=== PATIENT | female | born 1970 | race Caucasian/White ===

== ENCOUNTER 2024-02-03 18:32 | Emergency (ER) | payer OTHER, SELFPAY ==
[2024-02-03 18:48] VITALS: BP 154/91
[2024-02-03 19:05] LABS: % Basophils 0.7 % (0-2); % Eosinophils 2.4 % (0-6); % Immature Granulocytes 0.2 % (0-0.5); % Lymphocytes 41.7 % (20.5-51.1); % Monocytes 5.7 % (1.7-9.3); % Neutrophils 49.3 % (42.2-75.2); Absolute Basophils 0.1 10^3/uL (0-0.2); Absolute Eosinophils 0.2 10^3/uL (0-0.7); Absolute Lymphocytes 3.5 10^3/uL (1.2-3.4); Absolute Monocytes 0.5 10^3/uL (0.1-0.6); Absolute Neutrophils 4.2 10^3/uL (1.4-6.5); Hematocrit 40.6 % (37.0-47.0); Hemoglobin 13.8 g/dL (12.0-16.0); Mean Corpuscular Hgb 27.5 pg (27.0-31.0); Mean Corpuscular Volume 80.9 fL (81.0-99.0); Nucleated Red Blood Cells % 0 %; Platelet Count 297 10^3/uL (130-400); Red Blood Cell Count 5.02 10^6/uL (4.20-5.40); Red Cell Dist. Width 13.2 % (11.5-14.5); White Blood Cell Count 8.5 10^3/uL (4.8-10.8)
[2024-02-03 19:29] LABS: ALT (SGPT) 21 U/L (0-35); AST (SGOT) 19 U/L (14-36); Albumin 4.3 g/dl (3.5-5.0); Alkaline Phosphatase 73 U/L (38-126); Blood Urea Nitrogen 16 mg/dl (7-17); Calcium 9.5 mg/dl (8.4-10.2); Carbon Dioxide 27 mmol/L (22-30); Chloride 104 mmol/L (98-107); Glucose 128 mg/dl (70-99); Potassium 3.8 mmol/L (3.5-5.1); Sodium 142 mmol/L (135-145); Total Bilirubin 0.3 mg/dl (0.2-1.3); Total Protein 7.2 g/dl (6.3-8.2); eGFR > 60.00
[2024-02-03 19:32] LABS: Troponin I < 0.012 ng/ml
[2024-02-03 19:46] VITALS: BP 139/78
[2024-02-03 19:48] VITALS: BMI 44.5
[2024-02-03 20:00] VITALS: BP 142/75
--- NOTE | 2024-02-03 20:26 | ED.GENMED ---
History of Present Illness
General
Chief Complaint: Chest Pain
Time Seen by Provider: 02/03/24 20:00
History of Present Illness
History of Present Illness:
53-year-old female with history of hyperlipidemia, diabetes, obesity presenting to the emergency department for concern of abnormal EKG. Patient went to her primary care doctor today for a blood pressure check, recently taken off of lisinopril.
While at her doctor, reported that she had been having this left-sided chest pain on and off for the past 2 weeks, nonexertional. Her doctor did an EKG which read 'septal infarct 'and patient was subsequently sent to the emergency department for
concern of a heart attack. Patient reports that the pain radiates to her left shoulder. Does note some family history of cardiac disease as well. Denies any history of blood clot, recent surgery, exogenous estrogen, however was on a plane ride to
[place] about 3 weeks ago. Denies fever or cough. Denies known personal cardiac history. Denies additional acute medical complaints.
Phy Exam
Physical Exam
Physical Exam:
General: Well-appearing, no clinical signs of dehydration, nontoxic and in no acute distress
HEENT: protecting airway
Neck: appears supple
CV: Normal heart rate, regular rhythm. Chest pain reproducible to palpation
Resp: No accessory muscle use, no increased work of breathing, lungs clear to auscultation bilaterally
Abd: Soft and non-distended, no tenderness to palpation
Extremities: No deformities, no swelling, no erythema
Neuro: alert, no focal neurologic deficit
: deferred
Rectal: deferred
Psych: Normal affect
Skin: Intact
Scores
Heart Score for Chest Pain Patients
STEMI patient?: No
History: Slightly or Non-Suspicious
ECG: Normal
Age: >45 - <65 years
Risk Factors: >/= 3 Risk Factors or History of CAD
Troponin: </= Normal Limit
Heart Score for Chest Pain Patients: 3
Heart Score Risk: 2.5% MACE over next 6 weeks
Course
Orders/Labs/Results
Orders:
Orders
02/03/24 18:36
ECG [Electrocardiogram (*1)] Urgent
Reason for Study: Chest Pain
EKG- Treatment ONCE
02/03/24 18:59
Complete Blood Count/With Diff Urgent
Comprehensive Metabolic Panel Urgent
Troponin I Urgent
02/03/24 20:29
D-Dimer Urgent
02/03/24 22:00
Troponin I Urgent
Abnormal Lab Results
02/03/24
18:59
MCV 80.9 L fL
(81.0-99.0)
Absolute Lymphs (auto) 3.5 H 10^3/uL
(1.2-3.4)
Glucose 128 H mg/dl
(70-99)
02/03/24 18:59
02/03/24 18:59
Vital Signs
Initial and Last Documented VS:
Initial Vital Signs
Temp Pulse Resp BP Pulse Ox
97.9 F 56 18 154/91 99
02/03/24 18:48 02/03/24 18:48 02/03/24 18:48 02/03/24 18:48 02/03/24 18:48
Last Documented Vital Signs
Temp Pulse Resp BP Pulse Ox
98.3 F 58 15 122/69 96
02/03/24 22:05 02/03/24 22:00 02/03/24 22:00 02/03/24 22:00 02/03/24 22:00
MDM/Problems Addressed
MDM/Problems Addressed:
53-year-old female with history of hypertension (recently taken off meds), diabetes, hyperlipidemia, obesity presenting for intermittent left-sided chest pain for 2 weeks and concern of abnormal EKG. Vital signs are normal.
On exam patient is very well-appearing, no acute distress or discomfort. Unremarkable cardiac and pulmonary exam. Chest pain is reproducible on exam. Patient arrives with EKG, flattened T waves to V1 and V2 septal infarct pattern. EKG repeated
here, unchanged, no STEMI criteria. Patient however does have significant cardiac risk factors. This reason laboratory analysis sent including troponin. Troponin is undetectable. Cannot satisfy PERC rule given recent travel, will send D-dimer.
21:30 -Given that pain is reproducible, EKG without significant acute ischemic pathology, troponin negative, without concern for active [facility]. Discussed with cardiology, in agreement. Patient offered expedited outpatient follow-up versus observation
admission for trending troponins. Patient would like to proceed with expedited outpatient follow-up. For this reason we will send second troponin to ensure no acute elevation.
22:30 - Second troponin is undetectable. D-dimer is negative. Patient remains hemodynamically stable, blood pressure has normalized. Ultimately feel stable for discharge. Will provide chest pain hotline, for expedited patient cardiology
follow-up. Strict return precautions were communicated to patient and at bedside who verbalized understanding.
*Critical Care Note
Total Time (30-74mins, 75-104mins- exclusive of procedures): Not Applicable
ED Attending Note
-
Portions of this chart may have been created with voice recognition software.� Occasional wrong word or��sound alike� substitutions may have occurred due to the inherent limitations of voice recognition software.
Discharge Plan
Departure
Patient Disposition: Home (Routine Discharge)
Date of Disposition: 02/03/24
Time of Disposition: 22:39
Patient with high blood pressure during this ER visit?: No
Condition: Good
Discharge Problem:
Chest pain, Abnormal EKG
Instructions: Chest Pain CBC Follow Up
Prescriptions:
No Action
levothyroxine 75 mcg Tablet
75 mcg PO DAILY
insulin lispro [Humalog Pen] 100 unit/mL Insulin Pen
1 sliding scale dose SC .DINNER
rosuvastatin [Crestor] 10 mg Tablet
10 mg PO QPM
insulin degludec [Tresiba FlexTouch U-100] 100 unit/mL (3 mL) Insulin Pen
12 - 18 unit SC DAILY
Patient Comments:
sliding scale based upon blood sugar
Ozempic 0.25 mg or 0.5 mg (2 mg/3 mL) Pen Injector
0.25 mg SC QWEEK
Referrals:
Shimon Alicea MD [Active] - (chest pain)
José Miguel Boyer MD [Family Provider] -
Activity Restrictions/Additional Instructions:
You were seen in the emergency department for chest pain
You were found to have an abnormal EKG, however normal laboratory analysis.
Please follow-up closely with the supervisor [employer].
Return to the emergency department for any worsening of your symptoms, or any increased chest pain, difficulty breathing, abdominal pain with persistent vomiting and inability to tolerate food or liquid by mouth (concern for dehydration), weakness,
headache or confusion, fever greater than 100.4, or any additional symptoms that are concerning to you.
Thank you for choosing [facility].
Interventions
Interventions:
*Risk Screen - Suicide Last Done: 02/03/24 18:48
*General Assessment Last Done: 02/03/24 18:48
*Neglect/Abuse Screening Last Done: 02/03/24 18:48
ED- Fall Risk Assessment Last Done: 02/03/24 19:48
*ED COVID-19 Vaccine History Last Done: 02/03/24 19:48
ED- Cardiac Assessment Last Done: 02/03/24 22:08
Discharge Date and Time
Print Language: BURUNDI[place]
[2024-02-03 20:57] LABS: D-Dimer < 0.27 ug/mlFEU (0.00-0.50)
[2024-02-03 21:00] VITALS: BP 120/80
[2024-02-03 22:00] VITALS: BP 122/69
[2024-02-03 22:32] LABS: Troponin I < 0.012 ng/ml
[2024-02-03 23:00] VITALS: BP 126/64
== END 2024-02-03 23:32 | disposition home or self-care (01) ==
LOC: EMR 18:32
PROVIDERS: Emergency Medicine; EMERGENCY PHYSICIAN Student in an Organized Health Care Education/Training Program; FAMILY PHYSICIAN Family Medicine
DX: R07.89 Other chest pain (principal); R94.31 Abnormal electrocardiogram [ECG] [EKG]; E11.9 Type 2 diabetes mellitus without complications; E78.5 Hyperlipidemia, unspecified; E66.9 Obesity, unspecified; I10 Essential (primary) hypertension; Z82.49 Family history of ischemic heart disease and other diseases of the circulatory system; Z88.6 Allergy status to analgesic agent; Z88.1 Allergy status to other antibiotic agents; Z88.8 Allergy status to other drugs, medicaments and biological substances
CPT/HCPCS: 99284; 80053; 84484; 85025; 85379; 93005